=== PATIENT | male | born 1970 | race Caucasian/White ===

== ENCOUNTER 2016-04-27 21:56 | Inpatient (IN) | payer MEDICAID ==
[~2016-04-27] VITALS: Ht 180.3 cm; Wt 76.2 kg
[2016-04-27] MEDS ORDERED: [UNRECOGNIZED DRUG - REMARK] PO (22:10)
[2016-04-27] MEDS ORDERED: TRAZ-147 PO (22:19)
[2016-04-27] MEDS ORDERED: HYDR-3965 PO (22:19)
[2016-04-27] MEDS ORDERED: ACYC200C PO (22:19)
[2016-04-27] MEDS ORDERED: TESTC200I IM (22:19)
[2016-04-27] MEDS ORDERED: HYD25 PO (22:19)
[2016-04-27] MEDS ORDERED: GABA-531 PO (22:19)
[2016-04-27] MEDS ORDERED: BUPR150SR PO (22:19)
[2016-04-27] MEDS ORDERED: DOCU250C21 PO (22:19)
[2016-04-27] MEDS ORDERED: EMTR1TAB12 PO (22:19)
[2016-04-27 22:26] LABS: BASOPHILS % (AUTO) 0.7 % (0.0-2.0); EOSINOPHILS % (AUTO) 2.4 % (1.0-6.0); HEMATOCRIT 41.6 % (41-53); HEMOGLOBIN 13.9 g/dL (13.5-17.5); LYMPHOCYTES # (AUTO) 1.4 K/uL (1.0-4.8); MEAN CORPUSCULAR HGB CONC 33.4 G/dL (31.0-37.0); MEAN CORPUSCULAR VOLUME 93 fL (80-100); MONOCYTES # (AUTO) 0.6 K/uL (0.1-1.0); MONOCYTES % (AUTO) 8.9 % (2.0-9.0); NEUTROPHILS # (AUTO) 4.3 K/uL (1.8-7.7); PLATELET COUNT (AUTO) 252 K/uL (150-450); RED BLOOD CELL COUNT(AUTO) 4.49 MIL/uL (4.50-5.90); RED CELL DISTRIBUTION WIDTH 14.2 % (11.5-14.5); WHITE BLOOD COUNT (AUTO) 6.6 K/uL (4.5-11.0)
[2016-04-27 22:38] LABS: ANION GAP 8 mmol/L (8-16); CALCIUM, TOTAL 8.4 mg/dL (8.8-10.5); CARBON DIOXIDE 29 mmol/L (22-29); CHLORIDE 102 mmol/L (98-107); CREATININE 1.08 mg/dL (0.60-1.30); GLOMERULAR FILTR. RATE CALC > 60 mL/min (>60); POTASSIUM 4.3 mmol/L (3.5-5.1); SODIUM SERUM 139 mmol/L (136-145); UREA NITROGEN, BLOOD 17 mg/dL (7-18)
[2016-04-27 22:44] LABS: ALANINE AMINOTRANSFERASE 26 U/L (12-78); ALBUMIN 3.6 g/dL (3.4-5.0); ASPARTATE AMINOTRANSFERASE 19 U/L (15-37); BILIRUBIN,TOTAL 0.8 mg/dL (0.1-1.0); TOTAL PROTEIN, SERUM 6.8 g/dL (6.4-8.2)
[2016-04-28] MEDS ORDERED: LORazepam 2 MG/ML VIAL IM ONE
[2016-04-28] MEDS ORDERED: DiphenhydrAMINE HCL 50 MG/ML VIAL IM ONE
[2016-04-28] MEDS ORDERED: HALOPERIDOL LACTATE 5 MG/ML VIAL IM ONE
[2016-04-28] MEDS ORDERED: HALOPERIDOL 5 MG TABLET PO PRN (00:15)
[2016-04-28] MEDS ORDERED: ZOLPIDEM TARTRATE 10 MG TABLET PO PRN (00:15)
[2016-04-28 00:26] LABS: APPEARANCE,URINE CLEAR (CLEAR); GLUCOSE, URINE (UA) NEGATIVE (NEGATIVE); KETONES,URINE NEGATIVE (NEGATIVE); LEUKOCYTE ESTERASE ,URINE NEGATIVE (NEGATIVE); OCCULT BLOOD,URINE NEGATIVE (NEGATIVE); PH,URINE 6.5 (5.0-8.0); PROTEIN,URINE NEGATIVE (NEGATIVE)
[2016-04-28 00:28] LABS: ADD UA MICROSCOPIC NO
[2016-04-28] MEDS ORDERED: TESTC200I IM (01:36)
[2016-04-28] MEDS ORDERED: ATEN50TA PO (01:40)
[2016-04-28] MEDS: LORazepam 2 MG TABLET PO PRN (03:14)
[2016-04-28] MEDS ORDERED: PNEUMOCOCCAL VACCINE POLYVALENT 0.5 ML VIAL [PPSV23] IM ONE (14:15)
[2016-04-28 15:20] VITALS: BP 127/72
[2016-04-28 16:00] VITALS: BP 124/70
[2016-04-28] MEDS ORDERED: HydrOXYzine HCL 25 MG TABLET PO PRN (19:00)
[2016-04-28 21:57] VITALS: BP 127/78
[2016-04-28] MEDS: ATENOLOL 50 MG TABLET PO SCH (21:57)
[2016-04-29] MEDS: RILPIVIRINE HCL 25 MG TABLET PO SCH (07:01)
[2016-04-29 08:13] VITALS: BP 136/71
[2016-04-29] MEDS: EMTRICITABINE/TENOFOVIR 200-300 MG TABLET PO SCH (09:46)
[2016-04-29] MEDS: DOCUSATE SODIUM 250 MG CAPSULE PO SCH ×2 (09:47→16:11)
[2016-04-29] MEDS: ACYCLOVIR 200 MG CAPSULE PO SCH ×3 (09:47→16:11)
[2016-04-29] MEDS: ATENOLOL 50 MG TABLET PO SCH (09:48)
[2016-04-29] MEDS: LORazepam 2 MG TABLET PO PRN (09:48)
[2016-04-29 16:00] VITALS: BP 131/90
[2016-04-29] MEDS: GABAPENTIN 300 MG CAPSULE PO SCH (16:11)
[2016-04-29] MEDS ORDERED: BuPROPion HCL 75 MG TABLET PO SCH (17:00)
[2016-04-29] MEDS: NICOTINE 21 MG/24 HOUR PATCH TD SCH (17:06)
[2016-04-29] MEDS ORDERED: CloNIDine HCL 0.1 MG TABLET PO PRN (17:30)
[2016-04-29] MEDS ORDERED: PETROLATUM,WHITE 71 GM JELLY TP PRN (17:30)
[2016-04-29] MEDS ORDERED: ALBUTEROL SULFATE HFA 90 MCG/PUFF 8 GM INHALER IH PRN (17:30)
[2016-04-29] MEDS ORDERED: MAGNESIUM HYDROXIDE SUSPENSION 30 ML UDCUP PO PRN (17:30)
[2016-04-29] MEDS ORDERED: BENZOCAINE/MENTHOL LOZENGE MM PRN (17:30)
[2016-04-29] MEDS ORDERED: ACETAMINOPHEN 325 MG TABLET PO PRN (17:30)
[2016-04-29] MEDS ORDERED: LOPERAMIDE HCL 2 MG CAPSULE PO PRN (17:30)
[2016-04-29] MEDS ORDERED: IBUPROFEN 600 MG TABLET PO PRN (17:30)
[2016-04-29] MEDS ORDERED: BACITRACIN 28.4 GM OINTMENT TP PRN (17:30)
[2016-04-29] MEDS ORDERED: MAG HYDROX/AL HYDROX/SIMETH ES 30 ML SUSPENSION UDCUP PO PRN (17:30)
[2016-04-29] MEDS ORDERED: ONDANSETRON HCL 4 MG TABLET PO PRN (17:30)
[2016-04-29 18:18] VITALS: BP 134/85
[2016-04-29] MEDS ORDERED: TraZODone HCL 100 MG TABLET PO SCH (21:00)
[2016-04-30] MEDS: RILPIVIRINE HCL 25 MG TABLET PO SCH (06:37)
[2016-04-30 06:58] VITALS: BP 107/71
[2016-04-30] MEDS: LORazepam 2 MG TABLET PO PRN (07:12)
[2016-04-30 08:13] VITALS: BP 135/86
[2016-04-30] MEDS ORDERED: BuPROPion HCL 150 MG SR TABLET PO SCH (09:00)
[2016-04-30] MEDS: ATENOLOL 50 MG TABLET PO SCH (10:14)
[2016-04-30] MEDS: DOCUSATE SODIUM 250 MG CAPSULE PO SCH (10:14)
[2016-04-30] MEDS: GABAPENTIN 300 MG CAPSULE PO SCH ×2 (10:14→13:54)
[2016-04-30] MEDS: ACYCLOVIR 200 MG CAPSULE PO SCH ×2 (10:15→13:54)
[2016-04-30] MEDS: EMTRICITABINE/TENOFOVIR 200-300 MG TABLET PO SCH (10:15)
[2016-04-30] MEDS: NICOTINE 21 MG/24 HOUR PATCH TD SCH (10:15)
== END 2016-04-30 16:31 | disposition home or self-care (01) | DRG 751 ==
LOC: EMS 22:00 → B3A 04-28 15:05
DX: F33.2 Major depressive disorder, recurrent severe without psychotic features (principal); E83.51 Hypocalcemia; I10 Essential (primary) hypertension; J44.9 Chronic obstructive pulmonary disease, unspecified; F15.10 Other stimulant abuse, uncomplicated; F17.210 Nicotine dependence, cigarettes, uncomplicated; G47.00 Insomnia, unspecified; A60.00 Herpesviral infection of urogenital system, unspecified; K59.00 Constipation, unspecified; F12.90 Cannabis use, unspecified, uncomplicated; F41.9 Anxiety disorder, unspecified; M54.9 Dorsalgia, unspecified; Z20.6 Contact with and (suspected) exposure to human immunodeficiency virus [HIV]; Z79.899 Other long term (current) drug therapy; Z79.1 Long term (current) use of non-steroidal anti-inflammatories (NSAID); Z28.21 Immunization not carried out because of patient refusal
CPT/HCPCS: 90471; 96372; 99285; G0480; J1200; J1630; J2060